=== PATIENT | female | born 1960 | race Caucasian/White ===

== ENCOUNTER 2019-02-20 15:05 | Outpatient (CLI) | payer MEDICARE, SELFPAY ==
--- NOTE | 2019-02-20 15:18 | US_ITS ---
WS: [id number] ADDITIONAL VIEWS RIGHT BREAST RIGHT breast ultrasound, limited HISTORY: ABNORMAL MAMMOGRAM COMPARISON: 01/22/2019, 12/11/2017 Compression views right CC and MLO projection. True ML also submitted. Asymmetric nodule becomes less apparent with additional imaging. Nodule measures 6 mm in the mid [address] near 9-10 o'clock. Ultrasound to follow. RIGHT breast ultrasound, limited. At 10:00, 2 cm from the nipple is a well-circumscribed mixed echogenicity mass. Centrally the mass is hyperechoic suggesting this may be a lymph node. Cannot be completely sure this corresponds to the m ammographic abnormality. FOLLOW-UP: 6 Month Follow-up Recommend follow-up RIGHT mammogram and ultrasound in 6 months to document stability. This nodule may be a benign lymph node. As this is not completely concordant short-term follow-up is recommended. US/US breast RT limited* [id number] IMPRESSION: BI-RADS: 3-Probably Benign
== END 2019-02-20 15:06 | disposition home or self-care (01) ==
LOC: RADSHAW 15:08
PROVIDERS: Family Provider Nurse Practitioner; PCP Nurse Practitioner; Visit Provider Nurse Practitioner
DX: N63.10 Unspecified lump in the right breast, unspecified quadrant (principal); R92.8 Other abnormal and inconclusive findings on diagnostic imaging of breast
CPT/HCPCS: 76642; 77065

== ENCOUNTER → 2019-06-16 10:25 | Outpatient (BNVA) | payer MEDICARE, SELFPAY | PROVIDERS: Family Provider Nurse Practitioner; PCP Nurse Practitioner; Visit Provider Nurse Practitioner | DX: I10 Essential (primary) hypertension (principal); E03.9 Hypothyroidism, unspecified; M79.7 Fibromyalgia; E78.2 Mixed hyperlipidemia; K58.0 Irritable bowel syndrome with diarrhea; Z79.890 Hormone replacement therapy; J30.1 Allergic rhinitis due to pollen; K21.9 Gastro-esophageal reflux disease without esophagitis; F41.1 Generalized anxiety disorder | CPT/HCPCS: 80053; 80061; 81000; 84443 ==

== ENCOUNTER 2019-07-08 13:31 | Outpatient (CLI) | payer MEDICARE, SELFPAY ==
--- NOTE | 2019-07-08 13:39 | XR_ITS ---
WS: [id number] THORACIC SPINE TECHNIQUE: 3 views of the thoracic spine CLINICAL INFORMATION: back pain COMPARISON: None. FINDINGS: Mild thoracic curve convex right. Mild thoracic kyphosis. Mild disc space narrowing in the mid thorac ic spine. No acute appearing compression fractures. Surgical clips at the thoracic inlet. Visualized lungs are well aerated. XR/XR thoracic spine 3V* [id number] IMPRESSION: 1. Mild thoracic curve convex right with mild thoracic kyphosis. 2. No acute appearing compression fractures.
--- NOTE | 2019-07-08 13:39 | XR_ITS ---
WS: [id number] LUMBAR SPINE TECHNIQUE: 3 views of the lumbar spine CLINICAL INFORMATION: back pain COMPARISON: None. FINDINGS: Minimal lumbar curve convex left. Five [id number] lumbar vertebral bodies. Disc space heights ar e well preserved. No compression fractures. No spondylolisthesis. Moderate facet arthropathy L5-S1. M ild disc space narrowing L5-S1. Pelvic phleboliths. Aortic calcification. Visualized sacroiliac joints are normal. Normal visualized soft tissues. Partially visualized bowel gas pattern is normal. XR/XR lumbar spine 2-3V* [id number] IMPRESSION: 1. Minimal lumbar curve convex left. 2. No acute compression fractures. 3. Moderate facet arthropathy L4-L5 and L5-S1. 4. Mild disc space narrowing L5-S1. 5. Aortic calcification.
--- NOTE | 2019-07-08 13:39 | XR_ITS ---
WS: [id number] CERVICAL SPINE TECHNIQUE: 3 views of the cervical spine CLINICAL INFORMATION: neck pain COMPARISON: None. FINDINGS: Moderate spondylitic changes. Slight anterolisthesis C4 on C5, C5 on C6 and C6 on C7. This is worse a t C5-C6 measuring 2.4 mm. Normal prevertebral soft tissues. Chronic posterior element ankylosis at C1 -C2 and C2-3. Advanced facet arthropathy worse at left C2-3 and right C5-6. Surgical clips thoracic inlet. Dens is difficult to visualize on the open-mouth view but appears normal on the lateral view. XR/XR cervical spine 3V* [id number] IMPRESSION: 1. Moderate spondylitic changes. 2. Slight anterolisthesis C4 on C5, C5 on C6 and C6 on C7. This is more promin ent at C5-6. 3. 2.4 mm anterolisthesis C5 on C6 4. Chronic appearing posterior element ankylosis at C1-2 and C2-3.
== END 2019-07-08 13:32 | disposition home or self-care (01) ==
LOC: RADWPI 13:37
PROVIDERS: Family Provider Nurse Practitioner; PCP Nurse Practitioner; Visit Provider Nurse Practitioner
DX: M54.2 Cervicalgia (principal); M54.9 Dorsalgia, unspecified; M40.294 Other kyphosis, thoracic region; M47.817 Spondylosis without myelopathy or radiculopathy, lumbosacral region; I70.0 Atherosclerosis of aorta; M48.07 Spinal stenosis, lumbosacral region; M43.22 Fusion of spine, cervical region
CPT/HCPCS: 72040; 72072; 72100

== ENCOUNTER 2019-07-28 06:00 | Outpatient (RCR) | payer MEDICARE, SELFPAY | END 2019-08-12 23:59 | disposition home or self-care (01) | LOC: TPT 06:00 | PROVIDERS: PCP Nurse Practitioner; Referring Provider Nurse Practitioner; Visit Provider Nurse Practitioner | DX: M79.7 Fibromyalgia (principal) | CPT/HCPCS: 97161 ==

== ENCOUNTER 2019-08-19 11:21 | Outpatient (CLI) | payer MEDICARE, SELFPAY ==
--- NOTE | 2019-08-19 11:30 | MM_ITS ---
WS: [id number] DIAGNOSTIC RIGHT DIGITAL MAMMOGRAM WITH CAD RIGHT breast ultrasound, limited HISTORY: 6 month follow-up. COMPARISON: 02/20/2019, 01/22/2019, 12/11/2017, 01/06/2015 Technique: CC, MLO and ML views. Spot compression RIGHT CC and MLO. Breast composition: There are scattered areas of fibroglandular density. Asymmetries in the central posterior and upper outer quadrant of the RIGHT breast persists. Mildly hyperdense nodule measuring 6 mm at 10:00, middle depth. Slightly more dense but not increased in size. No distortion. RIGHT breast ultrasound, limited. Ultrasound directed to the 9-12 o'clock axis. There is a benign-appearing lymph node measuring 7 x 4 x 7 mm at 10:00, 2 cm from the nipple which is unchanged. There is a hyperechoic mass which is probab ly a lipoma at 11:00. MM/[place] [id number] IMPRESSION: BI-RADS: 3-Probably Benign FOLLOW UP: 6 Month Follow-up Patient to return for annual mammogram in January 2020. Additional imaging of the RIGHT breast should be performed at that time to further evaluate the asymm etries in the upper outer quadrant. Additional imaging to include spot compress ion and ultrasound.
--- NOTE | 2019-08-19 12:45 | US_ITS ---
WS: [id number] DIAGNOSTIC RIGHT DIGITAL MAMMOGRAM WITH CAD RIGHT breast ultrasound, limited HISTORY: 6 month follow-up. COMPARISON: 02/20/2019, 01/22/2019, 12/11/2017, 01/06/2015 Technique: CC, MLO and ML views. Spot compression RIGHT CC and MLO. Breast composition: There are scattered areas of fibroglandular density. Asymmetries in the central posterior and upper outer quadrant of the RIGHT breast persists. Mildly hyperdense nodule measuring 6 mm at 10:00, middle depth. Slightly more dense but not increased in size. No distortion. RIGHT breast ultrasound, limited. Ultrasound directed to the 9-12 o'clock axis. There is a benign-appearing lymph node measuring 7 x 4 x 7 mm at 10:00, 2 cm from the nipple which is unchanged. There is a hyperechoic mass which is probab ly a lipoma at 11:00. US/US breast RT limited* [id number] IMPRESSION: BI-RADS: 3-Probably Benign FOLLOW UP: 6 Month Follow-up Patient to return for annual mammogram in January 2020. Additional imaging of the RIGHT breast should be performed at that time to further evaluate the asymm etries in the upper outer quadrant. Additional imaging to include spot compress ion and ultrasound.
== END 2019-08-19 11:22 | disposition home or self-care (01) ==
LOC: RADSHAW 11:26
PROVIDERS: PCP Nurse Practitioner; Visit Provider Nurse Practitioner
DX: R92.8 Other abnormal and inconclusive findings on diagnostic imaging of breast (principal); N64.89 Other specified disorders of breast; N63.11 Unspecified lump in the right breast, upper outer quadrant
CPT/HCPCS: 76642; 77065

== ENCOUNTER → 2019-08-29 14:00 | Outpatient (BNVA) | payer MEDICARE, SELFPAY | PROVIDERS: PCP Nurse Practitioner; Visit Provider Nurse Practitioner Family | DX: R10.9 Unspecified abdominal pain (principal); R30.0 Dysuria | CPT/HCPCS: 81000 ==

== ENCOUNTER 2019-09-22 14:25 | Outpatient (CLI) | payer MEDICARE, SELFPAY ==
--- NOTE | 2019-09-22 14:00 | XRR_ITS ---
PROCEDURE INFORMATION: Exam: XR Abdomen, 1 View Exam date and time: 09/22/2019 2:30 PM Age: 58 years old Clinical indication: Condition or disease; Kidney or ureter condition; Calculus (stone) in kidney; Prior surgery; Surgery type: Histo; Additional info: Renal calculus TECHNIQUE: Imaging protocol: XR of the abdomen. Views: Frontal supine view of the abdomen. 1 View. COMPARISON: CR XR KUB [id number] 01/20/2019 12:45 PM FINDINGS: Gastrointestinal tract: Normal. No bowel dilation. Organs: Bilateral renal calculi. Bones/joints: No acute findings. XR/XR KUB [id number] IMPRESSION: No acute findings.
== END 2019-09-22 14:26 | disposition home or self-care (01) ==
LOC: RAD 14:29
PROVIDERS: PCP Nurse Practitioner; Visit Provider Nurse Practitioner Family
DX: N20.0 Calculus of kidney (principal)
CPT/HCPCS: 74018; 80053; 81001

== ENCOUNTER → 2019-11-17 13:54 | Outpatient (BNVA) | payer MEDICARE, SELFPAY | PROVIDERS: PCP Nurse Practitioner; Visit Provider Nurse Practitioner | DX: E03.9 Hypothyroidism, unspecified (principal); I10 Essential (primary) hypertension | CPT/HCPCS: 80053; 84443 ==

== ENCOUNTER 2020-03-09 10:31 | Outpatient (CLI) | payer OTHER, SELFPAY ==
--- NOTE | 2020-03-09 10:30 | CT_ITS ---
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 Single phase imaging of the abdomen. Coronal and sagittal reformats are submitted. All CT scans at [facility] use at least one of these dose optimization techniques: automated exposure control; mA and/or kV adjustment per patient size (includes targeted exams where dose is matched to clinical indication); or iterativ e reconstruction. IV CONTRAST: Omnipaque 300; 95 mL IV. Oral contrast: Yes. DLP: 1129.32 mGycm COMPARISON: 12/22/2018 Lower thorax: Lung bases are clear. Heart is normal size. No hiatal hernia. Liver/biliary system: Normal size liver. Focal hepatic steatosis along the falciform ligament. Small cyst towards the superior RIGHT lobe of the liver. No bile duct dilatation. Gallbladder: Normal. No gallstones or wall thickening. No pericholecystic fluid. Pancreas: Normal. Spleen: Normal. Adrenal glands: Normal. Right kidney: Normal size kidney. No obstruction. There is normal enhancement of the kidney. The nume anni medullary calcifications have been described on prior studies are obscured by the IV contrast th at was given. There are a few identifiable medullary position calcifications. Left kidney: Normal size kidney. Small medullary calcifications. Normal enhancement of the kidney wit h no obstruction. No solid mass. Aorta: Normal. Lymphadenopathy: None. Free fluid: None. GI tract: Prior hysterectomy. There is mild diffuse constipation. Minimal sigmoid diverticulosis. No evidence for acute diverticulitis. No obstructive pattern. Abdominal wall: Unremarkable abdominal wall. No hernia. Pelvis: Normal. Bones: Unremarkable. CT/CT abdomen pelvis w con* [id number] IMPRESSION: 1. No renal obstruction or solid mass. 2. Bilateral nephrocalcinosis. Extent of the nephrocalcinosis is better visual ized on a nonenhanced study. Only a contrast study was obtained today. 3. Focal steatosis the falciform ligament. 4. Prior appendectomy.
[2020-03-09] MEDS: iohexol 300 mg/mL 100 mL Btl IV (10:57)
== END 2020-03-09 10:32 | disposition home or self-care (01) ==
LOC: RADWPI 10:37
PROVIDERS: PCP Nurse Practitioner; Visit Provider Nurse Practitioner Family
DX: Q61.5 Medullary cystic kidney (principal); Q42.8 Congenital absence, atresia and stenosis of other parts of large intestine; K76.0 Fatty (change of) liver, not elsewhere classified; E83.59 Other disorders of calcium metabolism; N29 Other disorders of kidney and ureter in diseases classified elsewhere
CPT/HCPCS: 74177; 80053; 81000; 85025; Q9967

== ENCOUNTER → 2020-04-20 09:34 | Outpatient (BNVA) | payer OTHER, SELFPAY | PROVIDERS: PCP Nurse Practitioner; Visit Provider Nurse Practitioner Family | DX: G89.29 Other chronic pain (principal); M54.9 Dorsalgia, unspecified | CPT/HCPCS: 72072; 72100 ==

== ENCOUNTER 2020-05-13 15:50 | Outpatient (CLI) | payer OTHER, SELFPAY ==
--- NOTE | 2020-05-13 16:37 | MR_ITS ---
WS: [id number] MRI LUMBAR SPINE NONCONTRAST TECHNIQUE: Sagittal T1, T2 and STIR imaging. Axial T1 and T2 imaging. CLINICAL INFORMATION: DORSALGIA, UNSPECIFIED COMPARISON: None. FINDINGS: Mild lumbar curve. No acute compression. No high-grade central canal stenosis. L1-L2: Normal. L2-L3: Normal. L3-L4: No significant disc bulging. Mild facet arthropathy. Spinal canal and foramen are patent. L4-L5: Mild annular bulging with slight effacement of ventral thecal sac. Impingement on the left sub articular recess with encroachment traversing left L5 nerve root. Mild facet arthropathy. Mild left f oraminal narrowing. L5-S1: Mild disc osteophytic ridging with slight narrowing of the left subarticular recess. Mild left and no significant right foraminal narrowing. Mild facet arthropathy. Visualized pelvic bony structures: Normal. Paravertebral soft tissues: Normal. MR/MR lumbar spine wo con* [id number] IMPRESSION: 1. Mild lumbar curve. No acute compression. No high-grade central canal stenos is. 2. Mild annular bulging L4-5 with slight impingement left subarticular recess and traversing left L5 nerve root. Mild left L4-5 foraminal narrowing. 3. Minimal annular bulging L5-S1 with slight narrowing of the left subarticula r recess. No significant nerve root impingement. Mild left L5-S1 foraminal narr owing. 4. Mild facet arthropathy L3-L5.
--- NOTE | 2020-05-13 16:45 | MR_ITS ---
WS: [id number] MRI THORACIC SPINE WITHOUT CONTRAST TECHNIQUE: Sagittal T1, T2 and STIR imaging. Axial T2 imaging. Noncontrast imaging obtained. CLINICAL INFORMATION: M54.9 - Dorsalgia, unspecified COMPARISON: None. FINDINGS: Mild thoracic curve. Mild thoracic kyphosis. No acute compression. No high-grade central canal stenos is. Normal CSF pulsation artifact in the dorsal spinal canal. Tiny central disc protrusions T4-T5 and T5-T6 without significant central canal stenosis. Moderate facet arthropathy lower thoracic spine. N o high-grade foraminal narrowing. Disc space heights and vertebral body heights well-preserved. Normal caliber thoracic aorta. Adrenal glands are normal. MR/MR thoracic spin wo con* [id number] IMPRESSION: 1. Mild thoracic curve. Mild thoracic kyphosis. 2. No acute compression. No high-grade central canal stenosis. 3. Tiny central protrusions T4-T5 and T5-T6 without significant spinal canal n arrowing. 4. Moderate facet arthropathy lower thoracic spine. 5. No other significant findings.
== END 2020-05-13 15:51 | disposition home or self-care (01) ==
LOC: RADSHAW 15:52
PROVIDERS: PCP Nurse Practitioner; Visit Provider Nurse Practitioner Family
DX: M47.814 Spondylosis without myelopathy or radiculopathy, thoracic region (principal); M51.24 Other intervertebral disc displacement, thoracic region; M40.204 Unspecified kyphosis, thoracic region; M47.816 Spondylosis without myelopathy or radiculopathy, lumbar region
CPT/HCPCS: 72146; 72148

== ENCOUNTER → 2020-05-28 11:41 | Outpatient (BNVA) | payer OTHER, SELFPAY | PROVIDERS: PCP Nurse Practitioner; Visit Provider Nurse Practitioner | DX: E03.9 Hypothyroidism, unspecified (principal); I10 Essential (primary) hypertension; K21.9 Gastro-esophageal reflux disease without esophagitis; E78.2 Mixed hyperlipidemia; R11.0 Nausea; M79.7 Fibromyalgia; F41.1 Generalized anxiety disorder; Z79.890 Hormone replacement therapy | CPT/HCPCS: 80053; 80061; 84443 ==

== ENCOUNTER → 2020-06-17 11:22 | Outpatient (BNVA) | payer OTHER, SELFPAY | PROVIDERS: PCP Nurse Practitioner; Visit Provider Nurse Practitioner | DX: E55.9 Vitamin D deficiency, unspecified (principal); M54.9 Dorsalgia, unspecified; G89.29 Other chronic pain; K58.0 Irritable bowel syndrome with diarrhea | CPT/HCPCS: 74018; 82306 ==

== ENCOUNTER → 2020-07-14 08:25 | Outpatient (BNVA) | payer OTHER, SELFPAY | PROVIDERS: PCP Nurse Practitioner; Visit Provider Nurse Practitioner Family | DX: R39.9 Unspecified symptoms and signs involving the genitourinary system (principal); M54.9 Dorsalgia, unspecified; G89.29 Other chronic pain; M51.26 Other intervertebral disc displacement, lumbar region; R11.0 Nausea | CPT/HCPCS: 81000 ==

== ENCOUNTER → 2020-07-22 10:58 | Outpatient (BNVA) | payer OTHER, SELFPAY | PROVIDERS: PCP Nurse Practitioner; Referring Provider Nurse Practitioner Family; Visit Provider Orthopaedic Surgery | DX: M54.9 Dorsalgia, unspecified (principal); G89.29 Other chronic pain | CPT/HCPCS: 72120 ==

== ENCOUNTER 2020-09-30 08:10 | Outpatient (CLI) | payer OTHER, SELFPAY ==
--- NOTE | 2020-09-30 07:45 | XR_ITS ---
WS: [id number] KUB, AP view, 09/30/2020 Clinical Data: KIDNEY STONE Comparison: KUB, 06/17/2020. Findings: No abnormal intraabdominal masses are seen. There is no dilatated small bowel or evidence of obstruct ion. There are now faint calcifications overlying both kidneys. The prior study was underpenetrated. There is fecal material throughout the colon XR/XR KUB [id number] Impression: Faint bilateral renal calcifications.
== END 2020-09-30 08:11 | disposition home or self-care (01) ==
PROVIDERS: PCP Family Medicine; Visit Provider Urology
DX: N20.0 Calculus of kidney (principal)
CPT/HCPCS: 74018; 81003

== ENCOUNTER 2021-06-01 07:35 | Outpatient (CLI) | payer OTHER, SELFPAY ==
--- NOTE | 2021-06-01 07:43 | XR_ITS ---
WS: [id number] Exam: XR KUB [id number] Date/Time of Exam: 06/01/2021 7:43 AM Reason For Exam: STONES No bowel obstruction or free air. Tiny calcification superimpose both kidneys which may represent mul tiple small renal stones. Moderate amount stool in the colon. No sign of organ enlargement. Bony stru ctures are intact. Nonspecific bilateral small pelvic calcifications. XR/XR KUB [id number] IMPRESSION: 1. Small calcification superimpose both renal silhouettes and may represent mul tiple small renal stones. 2. No acute abdominal process.
== END 2021-06-01 07:36 | disposition home or self-care (01) ==
LOC: RAD 07:37
PROVIDERS: PCP Family Medicine; Visit Provider Nurse Practitioner Family
DX: N20.0 Calculus of kidney (principal)
CPT/HCPCS: 74018; 81003; 87086; 87106

== ENCOUNTER → 2022-04-12 14:54 | Outpatient (BNVA) | payer OTHER, SELFPAY | PROVIDERS: PCP Family Medicine; Visit Provider Nurse Practitioner Family | DX: R07.89 Other chest pain (principal) | CPT/HCPCS: 71046 ==

== ENCOUNTER 2022-05-25 14:24 | Outpatient (CLI) | payer OTHER, SELFPAY ==
--- NOTE | 2022-05-25 14:40 | MM_ITS ---
WS: [id number] BILATERAL 3D TOMOSYNTHESIS DIGITAL SCREENING MAMMOGRAPHY WITH CAD CLINICAL INFORMATION: SCREENING HISTORY: Screening mammogram. No current complaints. COMPARISON: 2019 TECHNIQUE: Bilateral CC and MLO views. FINDINGS: Scattered fibroglandular densities bilaterally. No suspicious focal mass, asymmetry, calcifications, or architectural distortion. No evidence of malignancy. Incidental punctate calcifications. Stable in tramammary lymph nodes. MM/[place] [id number] IMPRESSION: BI-RADS: 2-Benign FOLLOW UP: 1 Year Follow-up Recommend return to annual screening mammography.
== END 2022-05-25 14:25 | disposition home or self-care (01) ==
LOC: RAD 14:26
PROVIDERS: PCP Family Medicine; Visit Provider Family Medicine
DX: Z12.31 Encounter for screening mammogram for malignant neoplasm of breast (principal)
CPT/HCPCS: 77063; 77067

== ENCOUNTER 2023-06-26 11:59 | Outpatient (CLI) | payer MEDICARE, SELFPAY ==
--- NOTE | 2023-06-26 12:00 | MM_ITS ---
WS: [id number] BILATERAL 3D TOMOSYNTHESIS DIGITAL SCREENING MAMMOGRAPHY WITH CAD CLINICAL INFORMATION: SCREENING HISTORY: Screening mammogram. No current complaints. COMPARISON: 2022 TECHNIQUE: Bilateral CC and MLO views. FINDINGS: Scattered fibroglandular densities bilaterally. No suspicious focal mass, asymmetry, calcifications, or architectural distortion. No evidence of malignancy. A few incidental punctate calcifications. MM/[place] [id number] IMPRESSION: BI-RADS: 2-Benign FOLLOW UP: 1 Year Follow-up Recommend return to annual screening mammography.
== END 2023-06-26 12:00 | disposition home or self-care (01) ==
LOC: MOBLMAM 12:09
PROVIDERS: PCP Family Medicine; Visit Provider Family Medicine
DX: Z12.31 Encounter for screening mammogram for malignant neoplasm of breast (principal)
CPT/HCPCS: 77063; 77067

== ENCOUNTER 2024-07-30 11:56 | Outpatient (CLI) | payer MEDICARE, SELFPAY ==
--- NOTE | 2024-07-30 12:00 | MM_ITS ---
WS: [id number] BILATERAL 3D TOMOSYNTHESIS DIGITAL SCREENING MAMMOGRAPHY WITH CAD CLINICAL INFORMATION: SCREENING HISTORY: Screening mammogram. No current complaints. COMPARISON: 2023 TECHNIQUE: Bilateral CC and MLO views. FINDINGS: Scattered fibroglandular densities bilaterally. No suspicious focal mass, asymmetry, calcifications, or architectural distortion. No evidence of malignancy. A few incidental punctate calcifications. MM/MM scr tomosynthesis [id number] IMPRESSION: DENSITY: There are scattered areas of fibroglandular density. BI-RADS: 2 - Benign. FOLLOW UP: 1 Year Follow-up Recommend return to annual screening mammography.
== END 2024-07-30 11:57 | disposition home or self-care (01) ==
PROVIDERS: PCP Family Medicine; Visit Provider Family Medicine
DX: Z12.31 Encounter for screening mammogram for malignant neoplasm of breast (principal)
CPT/HCPCS: 77063; 77067